=== PATIENT | male | born 1965 | race Caucasian/White ===

== ENCOUNTER 2016-06-17 18:18 | Emergency (ER) | payer SELFPAY ==
[~2016-06-17] VITALS: Ht 182.9 cm; Wt 89.1 kg
[2016-06-17] MEDS ORDERED: FAMOTIDINE 20 MG TABLET ONE (18:56)
[2016-06-17] MEDS ORDERED: DIPHENHYDRAMINE 25 MG CAPSULE ONE (18:56)
[2016-06-17] MEDS ORDERED: FAMOTIDINE 20 MG TABLET PO ONE (19:00)
[2016-06-17] MEDS ORDERED: DIPHENHYDRAMINE 25 MG CAPSULE PO ONE (19:00)
[2016-06-17 20:08] VITALS: BP 131/86
== END 2016-06-17 20:10 | disposition home or self-care (01) ==
LOC: ED 20:04
DX: L40.0 Psoriasis vulgaris (principal); F17.200 Nicotine dependence, unspecified, uncomplicated
CPT/HCPCS: 99284; J7512; Q0163

== ENCOUNTER 2016-09-25 17:50 | Emergency (ER) | payer SELFPAY ==
[~2016-09-25] VITALS: Ht 182.9 cm; Wt 89.1 kg
[2016-09-25 17:52] VITALS: BP 133/79
== END 2016-09-25 18:57 | disposition home or self-care (01) ==
LOC: ED 18:51
DX: L03.116 Cellulitis of left lower limb (principal); L03.115 Cellulitis of right lower limb; L03.114 Cellulitis of left upper limb; L40.0 Psoriasis vulgaris; F15.10 Other stimulant abuse, uncomplicated; Z72.9 Problem related to lifestyle, unspecified
CPT/HCPCS: 99283